=== PATIENT | female | born 1995 | race Caucasian/White ===

== ENCOUNTER 2024-02-25 19:27 | Emergency (ER) | payer SELFPAY ==
[2024-02-25 20:09] LABS: Absolute Monocytes 0.8 K/uL (0.1-1.3); Absolute Neutrophil 5.1 K/uL (1.8-8.0); Basophils % 0.2 % (0-1.3); Eosinophils % 0.4 % (0-4.4); Hematocrit 32.5 % (36.0-45.0); Hemoglobin 11.4 g/dL (12.0-15.0); MCH 36.1 pg (27.0-35.0); MPV 9.5 fL (7.6-11.3); Monocytes % 11.9 % (3.3-12.3); Neutrophils % 73.5 % (41.7-73.7); Nucleated Red Blood Cells % 0.1 % (0-0); Platelets 97 thou/uL (152-406); RBC Red Blood Cell Count 3.15 M/uL (3.86-4.86); Red Cell Distribution Width 15.5 % (12.1-15.2)
[2024-02-25 20:28] LABS: Albumin 3.1 g/dL (3.4-5.0); Albumin/Globulin Ratio 0.8 (1.1-1.8); Anion Gap 14.2 mEq/L (5.0-15.0); Bilirubin Total 10.3 mg/dL (0.2-1.0); Globulin 4.1 g/dL (2.3-3.5); Potassium 3.2 mEq/L (3.5-5.1); Protein, Total 7.2 g/dL (6.4-8.2)
[2024-02-25] MEDS ORDERED: MULTIVITAMINS 10 ML VIAL (INJ) IV ONE (20:53)
[2024-02-25] MEDS ORDERED: THIAMINE 200 MG/2 ML INJ ONE (20:53)
[2024-02-25] MEDS ORDERED: PANTOPRAZOLE 40 MG INJ ONE (20:53)
[2024-02-25] MEDS ORDERED: NA CHLORIDE 0.9% 1,000 ML ONE (20:54)
[2024-02-25] MEDS ORDERED: NA CHLORIDE 0.9% 50 ML ONE (20:59)
--- NOTE | 2024-02-25 21:19 | RAD REPORT ---
EXAM: Chest Single View HISTORY: ABDOMINAL DISTENTION COMPARISON: None. FINDINGS: LUNGS/PLEURA: The lungs are clear. No pleural effusions or pneumothorax. No pulmonary edema. MEDIASTINUM: The mediastinal silhouette is within normal limits. CARDIAC: The cardiac silhouette is within normal limits. UPPER ABDOMEN: No significant abnormality. BONES: No acute abnormality. LINES/TUBES/OTHER: N/A IMPRESSION: No evidence of acute cardiopulmonary disease.
[2024-02-25 21:26] LABS: Specific Gravity < 1.005 (1.005-1.030); Sqamous Epithelial <5 /HPF (None Seen); Urine Bacteria <20 /HPF (<20); Urine Bilirubin 1+ (Negative); Urine Blood Negative (Negative); Urine Clarity Extremely Turbid (Clear); Urine Color Yellow (Yellow); Urine Crystals Unidentified Few /HPF (None Seen); Urine Culture Reflex Order NOT NEEDED; Urine Glucose NEGATIVE (Negative); Urine Ketones NEGATIVE (Negative); Urine Microscopic Reflex YN ORDER UMIC; Urine Nitrite NEGATIVE (Negative); Urine Protein NEGATIVE (Negative); Urine RBC <5 /HPF (None Seen); Urine Urobilinogen Normal (Normal); Urine WBC <5 /HPF (<5); Urine WBC Clump Rare /HPF (None Seen); Urine Yeast (Budding) Trace /HPF (None Seen); Urine pH 6.5 (5.0-7.0)
[2024-02-25 21:47] LABS: Specific Gravity < 1.005 (1.005-1.030)
[2024-02-25 21:47] LABS: PT Prothrombin Time 15.5 SECONDS (9.4-12.5); Protime INR 1.4
--- NOTE | 2024-02-25 22:13 | RAD REPORT ---
EXAMINATION: CT ABDOMEN AND PELVIS WITH CONTRAST CLINICAL INDICATION: Female, 28 years old.ABD PAIN TECHNIQUE: CT abdomen and pelvis was performed, after the administration of IV contrast, as per [facility] protocol. Axial, sagittal and coronal reconstructions were obtained. One or more of the following dose reduction techniques were used: Automated exposure control, adjustment of the mA and/o r kV according to patient size, and/or iterative reconstruction. Unless otherwise specified, incidental findings do not require dedicated imaging follow-up. [id number]. COMPARISON: No prior exam. FINDINGS: LOWER CHEST: No acute process identified.No significant pericardial effusion. UPPER GI: No significant abnormality. LIVER: Pronounced hepatic steatosis with some heterogeneity of the parenchyma. Areas of fatty sparing . Liver is enlarged. GALLBLADDER/BILE DUCTS: Distended with enhancement of the gallbladder wall. Cholelithiasis suspected. ? PANCREAS: Pancreatic atrophy. Question some subtle peripancreatic stranding. SPLEEN: Moderate splenomegaly. ADRENALS: No adrenal masses. KIDNEYS AND URETERS: No hydronephrosis.No suspicious renal mass. ABDOMINAL AORTA AND OTHER VESSELS: Normal caliber aorta and IVC. PERITONEUM: No abnormal free fluid. No free air. LYMPH NODES: No pathologic lymphadenopathy. ABDOMINAL WALL: Unremarkable SMALL BOWEL/COLON: Wall thickening of the descending and sigmoid colon.Normal appendix. URINARY BLADDER: Underdistended but grossly unremarkable. REPRODUCTIVE ORGANS: No pathologic process. MUSCULOSKELETAL: No acute or suspicious osseous abnormality. ADDITIONAL FINDINGS: None. IMPRESSION: 1. Hepatomegaly with pronounced hepatic steatosis and parenchymal heterogeneity which could reflect s teatohepatitis. 2. Age advanced pancreatic atrophy. Subtle peripancreatic stranding. Correlate with lipase to exclude acute pancreatitis. 3. Cholelithiasis. No CT evidence of acute cholecystitis. 4. Splenomegaly. 5. Nonspecific wall thickening at the descending sigmoid colon could reflect a mild colitis.
[2024-02-25] MEDS ORDERED: CEFTRIAXONE 1000 MG/VIAL ONE (22:40)
[2024-02-25] MEDS ORDERED: VITAMIN K (ADULT) 10 MG/ML ONE (22:41)
--- NOTE | 2024-02-25 22:48 | ER ---
Nurse's Notes [facility] Name: Sol Morrison Age: 28 yrs Sex: Female : 1995 Arrival Date: 02/25/2024 Time: 19:27 Bed 16 Private MD: Diagnosis: Unspecified jaundice;Abdominal pain, Generalized;Hepatic failure, unspecified without coma-ALCOHOL;UTI/ Urinary tract infection, site not specified;Hypokalemia;Other cholelithiasis without obstruction Presentation: 02/24 19:43 Chief complaint: Patient states: Yellowing to her eyes onset 3 days ago. Pt states that cm10 now it is spreading. Pt reports abdominal pain. Pt reports drinking 5 alcoholic beverages daily. Coronavirus screen: Client denies travel out of the [place] in the last 14 days. Ebola Screen: Patient denies travel to an Ebola-affected area in the 21 days before illness onset. No symptoms or risks identified at this time. Initial Sepsis Screen: Does the patient meet any 2 criteria? HR > 90 bpm. Does the patient have a suspected source of infection? No. Patient's initial sepsis screen is negative. Risk Assessment: Do you want to hurt yourself or someone else? Patient reports no desire to harm self or others. Onset of symptoms was February 22, 2024. 19:43 Method Of Arrival: Ambulatory cm10 19:43 Acuity: JOSE 3 cm10 Historical: - Allergies: 19:45 No Known Allergies; cm10 - PMHx: 19:45 None; cm10 - PSHx: 19:45 None; cm10 - Immunization history:: Adult Immunizations up to date. - Infectious Disease History:: Denies. - Social history:: Smoking status: Patient reports the use of cigarette tobacco products, denies chronic smoking, but will smoke occasionally, Patient uses alcohol, on a daily basis. 5 drinks per day.. Screenin:21 [facility] ED Fall Risk Assessment (Adult) History of falling in the last 3 months, br2 including since admission No falls in past 3 months (0 pts) Confusion or Disorientation No (0 pts) Intoxicated or Sedated No (0 pts) Impaired Gait No (0 pts) Mobility Assist Device Used No (0 pt) Altered Elimination No (0 pt) Score/Fall Risk Level 0 - 2 = Low Risk Oriented to surroundings. Abuse screen: Denies threats or abuse. Denies injuries from another. Nutritional screening: No deficits noted. Tuberculosis screening: No symptoms or risk factors identified. Assessment: 20:21 Reassessment: Patient and/or family updated on plan of care and expected duration. Pain br2 level reassessed. Patient is alert, oriented x 3, equal unlabored respirations, skin warm/dry/pink. General: Appears. 20:21 Reassessment: Patient and/or family updated on plan of care and expected duration. Pain br2 level reassessed. Patient is alert, oriented x 3, equal unlabored respirations, skin warm/dry/pink. General: Behavior is calm, cooperative. Pain: Complains of pain in left mid back and right mid back Pain radiates to right lower quadrant and left lower quadrant. Neuro: Level of Consciousness is awake, alert, obeys commands, Oriented to person, place, time. Cardiovascular: Denies chest pain. Respiratory: Airway is patent Respiratory effort is even, unlabored, Respiratory pattern is regular, symmetrical. GI: Reports upper abdominal pain. 20:21 Derm: Reports increased JAUDICE OVER THE LAST 3 DAYS. br2 22:37 Reassessment: FOLIC ACID NOT AVAILABLE IN THE HOSPITAL. NO FOLIC ACID ADMINISTERED. br2 22:52 Reassessment: No changes from previously documented assessment. Patient and/or family br2 updated on plan of care and expected duration. Pain level reassessed. Patient is alert, oriented x 3, equal unlabored respirations, skin warm/dry/pink. Patient denies pain at this time. 23:22 Reassessment: No changes from previously documented assessment. Patient and/or family br2 updated on plan of care and expected duration. Pain level reassessed. Patient is alert, oriented x 3, equal unlabored respirations, skin warm/dry/pink. Patient denies pain at this time. 02/25 01:30 Reassessment: No changes from previously documented assessment. Patient and/or family br2 updated on plan of care and expected duration. Pain level reassessed. Patient is alert, oriented x 3, equal unlabored respirations, skin warm/dry/pink. 03:00 Reassessment: No changes from previously documented assessment. Patient and/or family br2 updated on plan of care and expected duration. Pain level reassessed. Patient denies pain at this time. Patient states feeling better. Patient states symptoms have improved. 05:00 Reassessment: No changes from previously documented assessment. Patient and/or family br2 updated on plan of care and expected duration. Pain level reassessed. Patient is alert, oriented x 3, equal unlabored respirations, skin warm/dry/pink. 02/26 04:11 Reassessment: received report from lab courier Bill positive blood culture gram positive.ha1 Vital Signs: 02/24 19:43 BP 148 / 101; Pulse 107; Resp 19; Temp 99.1(TE); Pulse Ox 96% on R/A; Weight 60.78 kg; cm10 Height 5 ft. 9 in. ; Pain 7/10; 21:20 BP 136 / 96; Pulse 91; Resp 18 S; Pulse Ox 100% on R/A; br2 22:52 BP 141 / 100; Pulse 94; Resp 18 S; Pulse Ox 100% on R/A; br2 23:21 BP 133 / 99; Pulse 93; Resp 18 S; Pulse Ox 100% on R/A; Pain 0/10; br2 02/25 01:30 BP 147 / 99; Pulse 104; Resp 18; Pulse Ox 100% ; Pain 0/10; br2 05:00 BP 157 / 99; Pulse 103; Resp 18; Pulse Ox 100% on R/A; br2 06:26 BP 138 / 76; Pulse 87; Resp 18 S; Pulse Ox 98% on R/A; Pain 0/10; br2 08:33 BP 146 / 82; Pulse 84; Resp 15; Temp 97.4(O); Pulse Ox 98% ; ko1 02/24 19:43 Body Mass Index 19.79 (60.78 kg, 175.26 cm) cm10 02/24 19:43 Pain Scale: Adult cm10 23:21 Pain Scale: Adult br2 02/25 01:30 Pain Scale: Adult br2 06:26 Pain Scale: Adult br2 ED Course: 02/24 19:33 Patient arrived in ED. ra3 19:45 Triage completed. cm10 19:45 Arm band placed on right wrist. Patient placed in waiting room. cm10 20:03 Inserted saline lock: 20 gauge in right antecubital area, using aseptic technique. sa1 Blood collected. Flushed with 10 mL NS. 20:03 CBC with Diff Sent. sa1 20:03 CMP Sent. sa1 20:03 Lipase Sent. sa1 20:20 Jackie Soto, RN is Primary Nurse. br2 20:21 Patient has correct armband on for positive identification. Placed in gown. Bed in low br2 position. Call light in reach. Side rails up X 1. Provided Education on: PLAN OF CARE. 20:27 Jesu Lomas MD is Attending Physician. giig 21:13 Chest Single View XRAY In Process Unspecified. EDMS 21:13 Radiology exam delayed due to test not completed at this time. nj 22:05 CT Abd/Pelvis - IV Contrast Only In Process Unspecified. EDMS 22:55 Tylenol Level Sent. br2 23:21 Inserted saline lock: 20 gauge in left antecubital area, using aseptic technique. br2 Flushed with 10 mL NS. 23:31 initiated transfer with [facility] - pt was declined. kmf 02/25 00:47 Abdulaziz Pate MD is Hospitalizing Provider. gigi 00:53 initiated transfer with [facility], pt was declined due to cap. kmf 01:15 US Abdomen Limited In Process Unspecified. EDMS 01:18 [facility]. kmf 04:03 initiated transfer with [facility]. kmf 04:12 on hold with [facility] for 9 mins. kmf 04:17 [facility] decline \T\ cap. kmf 04:20 initiated at [facility] spoke with Vanessa Storm, was told she would try her best. kmf 04:38 [facility] declined. kmf 04:43 attempted [facility] transfer, waited on hold for 40 mins ... kmf 05:03 [facility] decline due to not having services. kmf 06:03 [facility] declined. kmf 07:18 initiated with Earlene at [facility]. she informed me all facilities were at [facility] capacity but would receive update when supervisor [place] arrives. 07:30 initiated transfer with Adry at [facility]. kmf 07:45 Earlene declined transfer due to capacity with [facility]. kmf 07:52 No provider procedures requiring assistance completed. Patient transferred, IV remains ko1 in place. 07:55 auto acceptance received with Adry for [facility] ER with Dr. Shanika Aaron. kmf 08:23 hodan with [facility] accepted transfer. bc6 Administered Medications: 02/24 21:15 Drug: Pantoprazole IVP 40 mg IVP once Route: IVP; Site: right antecubital; br2 21:45 Follow up: Response: No adverse reaction br2 21:37 Drug: Thiamine IV 100 mg IV at per protocol once Route: IV; Rate: per protocol; Site: br2 right antecubital; 22:56 Follow up: Response: No adverse reaction; IV Status: Completed infusion; IV Intake: 1ml br2 21:37 Drug: Banana Bag - (Multivitamin IV 1 amp, NS 0.9% IV 1000 ml, Thiamine IV 100 mg, br2 foLIC Acid IVPB 1 mg) IV at 500 ml/hr once Route: IV; Rate: 500 ml/hr; Site: right antecubital; 23:00 Follow up: Response: No adverse reaction; IV Status: Completed infusion; IV Intake: br2 1000ml 22:48 Drug: Phytonadione Sub-Q 10 mg Sub-Q once Route: Sub-Q; Site: right upper arm; br2 23:15 Follow up: Response: No adverse reaction br2 22:49 Drug: Rocephin IV 1 grams IV at per protocol once; Given slow IV push per pharmacy br2 instructions Route: IV; Rate: per protocol; Site: left antecubital; 23:00 Follow up: IV Status: Completed infusion; IV Intake: 10ml br2 23:21 Drug: NS 0.9% with KCl IV 20 mEq/L 1000 ml IV at 125 ml/hr continuous Route: IV; Rate: br2 125 ml/hr; Site: left antecubital; 02/25 08:30 Follow up: IV Status: Infusion continued upon transfer ko1 05:58 Drug: Piperacillin-Tazobactam IVPB 3.375 grams IVPB once over 60 mins; (mix in NS 100 br2 mL) Route: IVPB; Infused Over: 60 mins; Site: left antecubital; 06:28 Follow up: IV Status: Completed infusion; IV Intake: 100ml br2 06:25 Drug: Banana Bag - (Multivitamin IV 1 amp, NS 0.9% IV 1000 ml, Thiamine IV 100 mg, br2 foLIC Acid IVPB 1 mg) IV at 125 ml/hr once Route: IV; Rate: 125 ml/hr; Site: left antecubital; 08:30 Follow up: Response: No adverse reaction; IV Status: Infusion continued upon transfer ko1 06:26 Drug: Ativan IVP 1 mg IVP once Route: IVP; Site: right antecubital; br2 07:00 Follow up: Response: No adverse reaction; Anxiety decreased ko1 08:55 Drug: Ativan IVP 1 mg IVP once Route: IVP; Site: right antecubital; ko1 09:05 Follow up: Response: No adverse reaction ko1 Medication: 07:52 VIS not applicable for this client. ko1 Intake: 02/24 22:56 IV: 1ml; Total: 1ml. br2 23:00 IV: 1000ml; Total: 1001ml. br2 23:00 IV: 10ml; Total: 1011ml. br2 02/25 06:28 IV: 100ml; Total: 1111ml. br2 Outcome: 02/24 22:48 ER care complete, transfer ordered by MD. gigi 02/25 00:49 Decision to Hospitalize by Provider. gigi 06:12 ER care complete, transfer ordered by MD. gigi 07:53 Condition: stable ko1 07:53 Instructed on the need for transfer, 09:04 Transferred by ground EMS [facility]. to other acute care facility: [facility] ER. ko1 Transfer form completed. X-rays sent w/ patient. 09:04 Patient left the ED. ko1 Signatures: Dispatcher [employer] EDMS Jesu Lomas MD MD cha Jordan, Nathan nj Ayala, Heidy, RN RN ha1 Saundra Moses RN RN ko1 Jennifer Benitez6 Shanta Mitchell RN RN cm10 Ciera Taylor [facility] Mary Ann Gross ra3 Sultan cari Edwards Belinda RN RN br2 Corrections: (The following items were deleted from the chart) 06:02 01:30 BP 157 / 99; Pulse 103bpm; Resp 18bpm; Pulse Ox 100% RA; br2 br2 06:03 06:02 BP 157 / 99; Pulse 103bpm; Resp 18bpm; Pulse Ox 100% RA; br2 br2 06:26 05:00 BP 138 / 76; Pulse 87bpm; Resp 18bpm; Spontaneous; Pulse Ox 98% RA; Pain 0/10, br2 Adult; br2
--- NOTE | 2024-02-25 22:49 | EDPHYS ---
Physician Documentation [facility] Name: Sol Morrison Age: 28 yrs Sex: Female : 1995 Arrival Date: 02/25/2024 Time: 19:27 Bed 16 Private MD: ED Physician Jesu Lomas HPI: 02/24 22:40 This 28 yrs old Female presents to ER via Ambulatory with complaints of gigi Yellow eyes pale. 22:40 The patient presents with abdominal pain in the upper abdomen. Onset: The gigi symptoms/episode began/occurred 3 day(s) ago. ETOH ABUSE, ABD PAIN RUQ. The symptoms do not radiate. Associated signs and symptoms: none. Severity of pain: At its worst the pain was moderate in the emergency department the pain is unchanged. Severity of symptoms: At their worst the symptoms were mild moderate in the emergency department the symptoms are unchanged. Historical: - Allergies: 19:45 No Known Allergies; cm10 - PMHx: 19:45 None; cm10 - PSHx: 19:45 None; cm10 - Immunization history:: Adult Immunizations up to date. - Infectious Disease History:: Denies. - Social history:: Smoking status: Patient reports the use of cigarette tobacco products, denies chronic smoking, but will smoke occasionally, Patient uses alcohol, on a daily basis. 5 drinks per day.. ROS: 22:41 Constitutional: Negative for fever, chills, and weight loss, ENT: Negative for injury, gigi pain, and discharge, Neck: Negative for injury, pain, and swelling, Cardiovascular: Negative for chest pain, palpitations, and edema, Respiratory: Negative for shortness of breath, cough, wheezing, and pleuritic chest pain, Back: Negative for injury and pain, : Negative for injury, bleeding, discharge, and swelling, MS/Extremity: Negative for injury and deformity, Neuro: Negative for headache, weakness, numbness, tingling, and seizure, Psych: Negative for depression, anxiety, suicide ideation, homicidal ideation, and hallucinations, Allergy/Immunology: Negative for hives, rash, and allergies, Endocrine: Negative for neck swelling, polydipsia, polyuria, polyphagia, and marked weight changes, Hematologic/Lymphatic: Negative for swollen nodes, abnormal bleeding, and unusual bruising, 22:41 Eyes: Positive for icterus, 22:41 Skin: Positive for jaundice, Exam: 22:41 Constitutional: This is a well developed, well nourished patient who is awake, alert, gigi and in no acute distress. Head/Face: Normocephalic, atraumatic. ENT: Nares patent. No nasal discharge, no septal abnormalities noted. Tympanic membranes are normal and external auditory canals are clear. Oropharynx with no redness, swelling, or masses, exudates, or evidence of obstruction, uvula midline. Mucous membranes moist. Neck: Trachea midline, no thyromegaly or masses palpated, and no cervical lymphadenopathy. Supple, full range of motion without nuchal rigidity, or vertebral point tenderness. No Meningismus. Chest/axilla: Normal chest wall appearance and motion. Nontender with no deformity. No lesions are appreciated. Cardiovascular: Regular rate and rhythm with a normal S1 and S2. No gallops, murmurs, or rubs. Normal PMI, no JVD. No pulse deficits. Respiratory: Lungs have equal breath sounds bilaterally, clear to auscultation and percussion. No rales, rhonchi or wheezes noted. No increased work of breathing, no retractions or nasal flaring. Abdomen/GI: Soft, non-tender, with normal bowel sounds. No distension or tympany. No guarding or rebound. No evidence of tenderness throughout. Back: No spinal tenderness. No costovertebral tenderness. Full range of motion. MS/ Extremity: Pulses equal, no cyanosis. Neurovascular intact. Full, normal range of motion., bilateral aka Neuro: Awake and alert, GCS 15, oriented to person, place, time, and situation. Cranial nerves II-XII grossly intact. Motor strength 5/5 in all extremities. Sensory grossly intact. Cerebellar exam normal. Normal gait. Psych: Awake, alert, with orientation to person, place and time. Behavior, mood, and affect are within normal limits. 22:41 Eyes: Sclera: icterus, is present, 22:41 Skin: Appearance: Color: jaundiced, Temperature: normal temperature, Moisture: normal moisture, petechiae, not noted, ecchymosis, not noted, abscess, not appreciated, cellulitis, is not appreciated, induration, is not appreciated, 02/25 05:33 ECG was reviewed by the Attending Physician. [facility] Vital Signs: 02/24 19:43 BP 148 / 101; Pulse 107; Resp 19; Temp 99.1(TE); Pulse Ox 96% on R/A; Weight 60.78 kg; cm10 Height 5 ft. 9 in. ; Pain 7/10; 21:20 BP 136 / 96; Pulse 91; Resp 18 S; Pulse Ox 100% on R/A; br2 22:52 BP 141 / 100; Pulse 94; Resp 18 S; Pulse Ox 100% on R/A; br2 23:21 BP 133 / 99; Pulse 93; Resp 18 S; Pulse Ox 100% on R/A; Pain 0/10; br2 02/25 01:30 BP 147 / 99; Pulse 104; Resp 18; Pulse Ox 100% ; Pain 0/10; br2 05:00 BP 157 / 99; Pulse 103; Resp 18; Pulse Ox 100% on R/A; br2 06:26 BP 138 / 76; Pulse 87; Resp 18 S; Pulse Ox 98% on R/A; Pain 0/10; br2 08:33 BP 146 / 82; Pulse 84; Resp 15; Temp 97.4(O); Pulse Ox 98% ; ko1 02/24 19:43 Body Mass Index 19.79 (60.78 kg, 175.26 cm) cm10 02/24 19:43 Pain Scale: Adult cm10 23:21 Pain Scale: Adult br2 02/25 01:30 Pain Scale: Adult br2 06:26 Pain Scale: Adult br2 MDM: 02/24 20:27 Medical Screening Exam initiated gigi 22:43 Differential Diagnosis sepsis, flu. Differential diagnosis: bowel obstruction, gigi Cholelithiasis, diverticulitis, Dysmenorrhea, gastritis, GI Bleed, non-specific abd pain, pancreatitis, Peptic Ulcer Disease, Pyelonephritis, Ureterolithiasis, urinary tract infection. Data reviewed: vital signs, nurses notes, lab test result(s), EKG, radiologic studies, CT scan, plain films. Consideration of Admission/Observation Escalation of care including admission/observation considered. I considered the following discharge prescriptions or medication management in the emergency department Medications were administered in the Emergency Department. See MAR. Independent interpretation of the following test(s) in the Emergency Department EKG: See my EKG interpretation above. Test considered but Not performed: MRI: NO MRCP. Historians other than the Patient: Spouse/Significant Other: SO/ FRIEND. Care significantly affected by the following chronic conditions: ETOH ABUSE. Counseling: I had a detailed discussion with the patient and/or guardian regarding the historical points, exam findings, and any diagnostic results supporting the discharge/admit diagnosis, lab results, radiology results, the need to transfer to another facility, for higher level of care, [facility] does not immediately have the required specialist. 02/25 00:51 ED course: NO BEDS, [facility], [facility], [facility], [facility] , [facility]. [facility] 08:03 ED course: Pt accepted for transfer to [facility]. rn 02/24 19:46 Order name: CBC with Diff; Complete Time: 20:27 cm10 02/24 19:46 Order name: CMP; Complete Time: 22:22 cm10 02/24 19:46 Order name: Lipase; Complete Time: 22:22 cm10 02/24 19:46 Order name: Test, Urine; Complete Time: 22:22 cm10 02/24 19:46 Order name: Urinalysis w/ reflexes; Complete Time: 22:22 cm10 02/24 20:32 Order name: AMMONIA; Complete Time: 22:[address] [facility] 02/24 20:33 Order name: PT-INR; Complete Time: 22:[address] [facility] 02/24 22:33 Order name: Blood Culture Adult (2) [facility] 02/24 22:38 Order name: Test, Serum; Complete Time: 07:[address] [facility] 02/24 22:50 Order name: Tylenol Level; Complete Time: 00:[address] [facility] 02/24 20:32 Order name: CT Abd/Pelvis - IV Contrast Only; Complete Time: 22:[address] [facility] 02/24 20:32 Order name: Chest Single View XRAY; Complete Time: 22:[address] [facility] 02/25 00:51 Order name: US Abdomen Limited; Complete Time: 04:[address] [facility] 02/24 19:46 Order name: IV Saline Lock; Complete Time: 20:03 cm10 02/24 19:46 Order name: Labs collected and sent; Complete Time: 20:03 cm10 02/24 20:32 Order name: EKG - Nurse/Tech [facility] EC:33 Rate is 86 beats/min. Rhythm is regular. QRS [place] is Normal. [place] interval is normal. QRS gigi interval is normal. QT interval is normal. No Q waves. T waves are Normal. No ST changes noted. Clinical impression: Normal ECG and No evidence of ischemia. Interpreted by me. Reviewed by me. Administered Medications: 02/24 21:15 Drug: Pantoprazole IVP 40 mg IVP once Route: IVP; Site: right antecubital; br2 21:45 Follow up: Response: No adverse reaction br2 21:37 Drug: Thiamine IV 100 mg IV at per protocol once Route: IV; Rate: per protocol; Site: br2 right antecubital; 22:56 Follow up: Response: No adverse reaction; IV Status: Completed infusion; IV Intake: 1ml br2 21:37 Drug: Banana Bag - (Multivitamin IV 1 amp, NS 0.9% IV 1000 ml, Thiamine IV 100 mg, br2 foLIC Acid IVPB 1 mg) IV at 500 ml/hr once Route: IV; Rate: 500 ml/hr; Site: right antecubital; 23:00 Follow up: Response: No adverse reaction; IV Status: Completed infusion; IV Intake: br2 1000ml 22:48 Drug: Phytonadione Sub-Q 10 mg Sub-Q once Route: Sub-Q; Site: right upper arm; br2 23:15 Follow up: Response: No adverse reaction br2 22:49 Drug: Rocephin IV 1 grams IV at per protocol once; Given slow IV push per pharmacy br2 instructions Route: IV; Rate: per protocol; Site: left antecubital; 23:00 Follow up: IV Status: Completed infusion; IV Intake: 10ml br2 23:21 Drug: NS 0.9% with KCl IV 20 mEq/L 1000 ml IV at 125 ml/hr continuous Route: IV; Rate: br2 125 ml/hr; Site: left antecubital; 02/25 08:30 Follow up: IV Status: Infusion continued upon transfer ko1 05:58 Drug: Piperacillin-Tazobactam IVPB 3.375 grams IVPB once over 60 mins; (mix in NS 100 br2 mL) Route: IVPB; Infused Over: 60 mins; Site: left antecubital; 06:28 Follow up: IV Status: Completed infusion; IV Intake: 100ml br2 06:25 Drug: Banana Bag - (Multivitamin IV 1 amp, NS 0.9% IV 1000 ml, Thiamine IV 100 mg, br2 foLIC Acid IVPB 1 mg) IV at 125 ml/hr once Route: IV; Rate: 125 ml/hr; Site: left antecubital; 08:30 Follow up: Response: No adverse reaction; IV Status: Infusion continued upon transfer ko1 06:26 Drug: Ativan IVP 1 mg IVP once Route: IVP; Site: right antecubital; br2 07:00 Follow up: Response: No adverse reaction; Anxiety decreased ko1 08:55 Drug: Ativan IVP 1 mg IVP once Route: IVP; Site: right antecubital; ko1 09:05 Follow up: Response: No adverse reaction ko1 Disposition Summary: 02/26/24 06:12 Transfer Ordered Notes: Transfer Location: [facility](02/26/24 06:12) gigi Reason: Higher level of care(02/26/24 06:12) gigi Condition: Fair(02/26/24 06:12) gigi Problem: new(02/26/24 06:12) gigi Symptoms: have improved(02/26/24 06:12) gigi Accepting Physician: to [facility](02/26/24 09:04) ko1 Diagnosis - Unspecified jaundice(02/26/24 06:12) gigi - Abdominal pain, Generalized(02/26/24 06:12) gigi - Hepatic failure, unspecified without coma - ALCOHOL(02/26/24 06:12) gigi - UTI/ Urinary tract infection, site not specified(02/26/24 06:12) gigi - Hypokalemia(02/26/24 06:12) gigi - Other cholelithiasis without obstruction(02/26/24 06:12) gigi Forms: - Medication Reconciliation Form gigi - SBAR form gigi Signatures: Dispatcher [employer] EDMS Jesu Lomas MD MD cha Nieto, Roman, MD MD rn Lindsey Swift RN RN vc1 Saundra Moses RN RN ko1 Shanta Mitchell RN RN cm10 Jackie Soto RN RN br2 Corrections: (The following items were deleted from the chart) 02/24 19:46 19:46 CBC+H.LAB.BRZ ordered. EDMS EDMS 19:46 19:46 COMPREHENSIVE METABOLIC PANEL+C.LAB.BRZ ordered. EDMS EDMS 19:46 19:46 LIPASE+C.LAB.BRZ ordered. EDMS EDMS 19:46 19:46 Test, Urine+UC.LAB.BRZ ordered. EDMS EDMS 19:46 19:46 Urinalysis+U.LAB.BRZ ordered. EDMS EDMS 20:33 20:33 Chest Single View+RAD.RAD.BRZ ordered. EDMS EDMS 22:49 22:48 TO [facility] gigi gigi 02/25 00:47 02/24 22:48 [facility] gigi gigi 02/25 00:47 02/24 22:48 Higher level of care gigi gigi 02/25 00:47 02/24 22:48 Fair gigi gigi 02/25 00:47 02/24 22:48 new gigi gigi 02/25 00:47 02/24 22:48 have improved gigi gigi 02/25 00:47 02/24 22:48 Alcohol abuse gigi gigi 02/25 00:47 02/24 22:48 Hepatic failure, unspecified without coma - ALCOHOLIC gigi gigi 02/25 00:47 02/24 22:48 Noninfective gastroenteritis and colitis, unspecified gigi gigi 02/25 00:47 02/24 22:48 UTI/ Urinary tract infection, site not specified gigi gigi 02/25 00:47 02/24 22:49 TO [facility] gigi gigi 02/25 00:47 02/24 22:49 Hypokalemia gigi gigi 02/25 00:51 00:51 Abdomen Limited+US.RAD.BRZ ordered. EDMS EDMS 01:13 00:49 Telemetry/MedSurg (Inpatient) gigi vc1 01:13 00:49 gigi vc1 06:07 00:49 Inpatient Admission gigi kmf 06:07 00:49 Abdulaziz Pate gigi kmf 06:07 00:49 Fair gigi kmf 06:07 00:49 new gigi kmf 06: 00:49 are unchanged gigi kmf 06: 00:49 Standard gigi kmf 06:07 00:49 Alcohol abuse gigi kmf 06:07 00:49 Unspecified jaundice gigi kmf 06:07 00:49 Hepatic failure, unspecified without coma - ALCOHOL gigi kmf 06:07 00:49 Abdominal pain, Generalized gigi kmf 06:07 00:49 UTI/ Urinary tract infection, site not specified gigi kmf 06:07 00:51 Hypokalemia gigi 01:13 BR ER HOLD vc1 km: 01:13 ERHOLD- vc1 04:12 Other cholelithiasis without obstruction gigi 06:12 to [facility] gigi ko1
[2024-02-25] MEDS ORDERED: NS KCL 20MEQ 1,000 ML IV ONE (23:13)
--- NOTE | 2024-02-26 03:55 | RAD REPORT ---
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 COMPARISON: CT Abdomen pelvis 02/26/2024. TECHNIQUE: Grayscale and color doppler images of the right upper quadrant are provided for evaluation . FINDINGS: Liver: The liver demonstrate increased echogenicity. Gallbladder: There are echogenic structure with posterior shadowing corresponding to cholelithiasis. Gallbladder wall thickness measures 4.7 mm. There is pericholecystic fluid. Negative sonographic Atkins's sign, per benzene operator. Biliary tree: Common duct measures 3.8 mm. No intra and/or extrahepatic biliary ductal dilatation. Pancreas: The pancreas was not imaged Right kidney: The right kidney was not imaged. Abdominal cavity: Was not imaged. Aorta and IVC: Was not imaged. IMPRESSION: Cholelithiasis with gallbladder wall thickening and pericholecystic fluid, concerning for acute chris cystitis. Electronically signed by: Adama Parikh MD 02/26/2024 03:51 AM SKYDIVING INSTRUCTOR Due to temporary technical issues with the PACS/InfoLogixibPeer5 reporting system, reports are being signed by the in-house radiologist without review as a courtesy to ensure prompt reporting the interpreting radiologist is fully responsible for the content of the report. Transcribed Date/Time: 02/26/2024 3:54 AM
[2024-02-26] MEDS ORDERED: PIPERACIL/TAZO 3.375 GM VIAL IV ONE (05:19)
[2024-02-26] MEDS ORDERED: NA CHLORIDE 0.9% 100 ML ONE (05:19)
[2024-02-26] MEDS ORDERED: MULTIVITAMINS 10 ML VIAL (INJ) IV ONE (06:07)
[2024-02-26] MEDS ORDERED: NA CHLORIDE 0.9% 1,000 ML ONE (06:07)
[2024-02-26] MEDS ORDERED: THIAMINE 200 MG/2 ML INJ ONE (06:07)
[2024-02-26] MEDS ORDERED: LORazepam 2 MG/ML VIAL ONE ×2 (06:07→08:44)
[2024-02-26] MEDS ORDERED: NS KCL 20MEQ 1,000 ML IV ONE (08:45)
[2024-02-26 14:12] VITALS: O2SAT 98
[2024-02-26 14:14] VITALS: BP 146/82; TEMP 97.4
--- NOTE | 2024-02-29 12:50 | EKG ---
Test Date: 2024-02-26 Test Time: 05:29:41 Carving Machine Operator: MEASUREMENT RESULTS: Intervals: Rate: 86 RI: 130 QRSD: 94 QT: 396 QTc: 473 [place]: P: 69 RI: 130 QRS: 69 T: 37 INTERPRETIVE STATEMENTS: Normal sinus rhythm Normal ECG No previous ECG available for comparison Electronically Signed On 02-29-24 12:48:28 INSURANCE PROFESSIONAL by Robb Urena
== END 2024-02-26 09:04 | disposition short-term general hospital (02) ==
LOC: ER 19:27
DX: K70.40 Alcoholic hepatic failure without coma (principal); N39.0 Urinary tract infection, site not specified; K80.80 Other cholelithiasis without obstruction; E87.6 Hypokalemia; R10.84 Generalized abdominal pain; F17.210 Nicotine dependence, cigarettes, uncomplicated
CPT/HCPCS: 36415; 71045; 74177; 76705; 80053; 80143; 81001; 81025; 82140; 83690; 84703; 85025; 85610; 87040; 87205; 93005; 96372; 99285; J0696; J2470; J2543; J3411; J3430; J3480; J7030; Q9967